=== PATIENT | male | born 1930 | race Hispanic/Latino ===

== ENCOUNTER 2017-07-21 22:36 | Emergency (ER) | payer MEDICARE ==
[2017-07-21 22:37] VITALS: BMI 29.2
[2017-07-21 23:11] VITALS: PULSE 60
--- NOTE | 2017-07-21 23:15 | C.PDOC ---
History Of Present Illness 87 year old male with a rivero catheter in place presents to the ED c/o no urine is draining into leg bag since this afternoon. He now is c/o lower abdomen pain. He denies any fever, nausea, vomit. The catheter was last changed 1 week ago. Time Seen by Provider: 07/21/17 22:56 Chief Complaint (Nursing): Male Genitourinary History Per: Patient History/Exam Limitations: no limitations Onset/Duration Of Symptoms: Hrs Current Symptoms Are (Timing): Still Present Quality Of Discomfort: "Pain" Associated Symptoms: denies: Fever, Nausea, Vomiting Alleviating Factors: None Recent travel outside of the [place]: No Additional History Per: Patient Past Medical History Reviewed: Historical Data, Nursing Documentation, Vital Signs Vital Signs: Last Vital Signs Temp 97.9 F 07/21/17 23:07 Pulse 60 07/21/17 23:07 Resp 20 07/21/17 23:07 BP 178/81 H 07/21/17 23:07 Pulse Ox 98 07/21/17 23:22 - Medical History PMH: Arthritis, Back Problems, Benign Prostatic Hyperplasia, Cardia Arrhythmia, COPD, HTN, Pneumonia Surgical History: Pacemaker (2012), Tonsillectomy - [facility] Procedures CLOSED ENDOSCOPIC BIOPSY OF LARGE INTESTINE (12/16/13) INSERT INDWELLING CATH (04/06/14) OTH TRANSURETHRAL PROSTATECTOMY (12/16/13) REPLACE INDWELLING CATH (05/05/15) Family History: States: Unknown Family Hx - Social History Hx Tobacco Use: No Hx Alcohol Use: Yes Hx Substance Use: No - Immunization History Hx Tetanus Toxoid Vaccination: No Hx Influenza Vaccination: No Hx Pneumococcal Vaccination: No Review Of Systems Constitutional: Negative for: Fever, Chills Cardiovascular: Negative for: Chest Pain, Palpitations Respiratory: Negative for: Cough, Shortness of Breath Gastrointestinal: Positive for: Abdominal Pain. Negative for: Nausea, Vomiting Genitourinary: Positive for: Other (No urine in bag) Neurological: Negative for: Weakness, Numbness Physical Exam - Physical Exam Appears: Non-toxic, No Acute Distress Skin: Normal Color, Warm, Dry Head: Atraumatic, Normacephalic Oral Mucosa: Moist Neck: Normal ROM, Supple Chest: Symmetrical, No Tenderness Cardiovascular: Rhythm Regular, No Murmur Respiratory: Normal Breath Sounds, No Rales, No Rhonchi, No Wheezing Gastrointestinal/Abdominal: Soft, Tenderness (Lower abdomen) Male Genital: Other (Rivero catheter in place) Extremity: Normal ROM, No Pedal Edema, No Calf Tenderness, No Swelling Neurological/Psych: Oriented x3, Normal Speech, Normal Cognition Gait: Steady ED Course And Treatment O2 Sat by Pulse Oximetry: 98 (On RA) Pulse Ox Interpretation: Normal Reevaluation Time: 00:05 Reassessment Condition: Improved (Catheter draining well) Medical Decision Making Medical Decision Making: Rivero catheter was flushed but with a lot of resistance and is unable to be cleared. Catheter was changed in the ED. Disposition Counseled Patient/Family Regarding: Studies Performed, Diagnosis, Need For Followup - Disposition Disposition: HOME/ ROUTINE Disposition Time: 00:05 Condition: IMPROVED Instructions: Urinary Leg Bag (GEN), Rivero Catheter Placement and Care (ED) Forms: [employer] (Mauritanian) - Clinical Impression Clinical Impression: Obstructed Rivero catheter - Scribe Statement The provider has reviewed the documentation as recorded by the Scribe Bear Anderson All medical record entries made by the Scribe were at my direction and personally dictated by me. I have reviewed the chart and agree that the record accurately reflects my personal performance of the history, physical exam, medical decision making, and the department course for this patient. I have also personally directed, reviewed, and agree with the discharge instructions and disposition.
[2017-07-22 00:56] VITALS: BP 164/64; RESP 16; TEMP 98; O2SAT 97
== END 2017-07-22 01:34 | disposition home or self-care (01) ==
LOC: C.ER 22:36
DX: T83.098A Other mechanical complication of other urinary catheter, initial encounter (principal); Y84.8 Other medical procedures as the cause of abnormal reaction of the patient, or of later complication, without mention of misadventure at the time of the procedure; Y92.89 Other specified places as the place of occurrence of the external cause

== ENCOUNTER 2017-08-06 20:43 | Emergency (ER) | payer MEDICARE ==
[2017-08-06 20:44] VITALS: BMI 29.2
[2017-08-06 20:54] VITALS: RESP 18
--- NOTE | 2017-08-06 21:06 | C.PDOC ---
History Of Present Illness 87 year old male presents to the ER with a complaint of suprapubic pressure and distention for the past 4 hours. Patient states he has not past urine in 4 hours and believes his catheter is clogged. Denies nausea, vomiting, fever, or chills. Chief Complaint (Nursing): Male Genitourinary History Per: Patient History/Exam Limitations: no limitations Onset/Duration Of Symptoms: Hrs Current Symptoms Are (Timing): Still Present Quality Of Discomfort: Pressure Associated Symptoms: denies: Fever, Chills, Nausea, Vomiting Alleviating Factors: None Recent travel outside of the [place]: No Past Medical History Reviewed: Historical Data, Nursing Documentation, Vital Signs Vital Signs: Last Vital Signs Temp 97.8 F 08/06/17 22:35 Pulse 62 08/06/17 22:35 Resp 18 08/06/17 22:35 BP 134/80 08/06/17 22:35 Pulse Ox 97 08/06/17 22:35 - Medical History PMH: Arthritis, Back Problems, Benign Prostatic Hyperplasia, Cardia Arrhythmia, COPD, HTN, Pneumonia Surgical History: Pacemaker (2012), Tonsillectomy - [facility] Procedures CLOSED ENDOSCOPIC BIOPSY OF LARGE INTESTINE (12/16/13) INSERT INDWELLING CATH (04/06/14) OTH TRANSURETHRAL PROSTATECTOMY (12/16/13) REPLACE INDWELLING CATH (05/05/15) Family History: States: Unknown Family Hx - Social History Hx Tobacco Use: No Hx Alcohol Use: Yes Hx Substance Use: No - Immunization History Hx Tetanus Toxoid Vaccination: No Hx Influenza Vaccination: No Hx Pneumococcal Vaccination: No Review Of Systems Constitutional: Negative for: Fever, Chills Gastrointestinal: Positive for: Abdominal Pain (Pressure/distention). Negative for: Nausea, Vomiting, Diarrhea Physical Exam - Physical Exam Appears: Non-toxic, No Acute Distress Skin: Normal Color, Warm, Dry Head: Atraumatic, Normacephalic Eye(s): bilateral: Normal Inspection, PERRL, EOMI Oral Mucosa: Moist Neck: Normal, Supple Chest: Symmetrical, No Tenderness Cardiovascular: Rhythm Regular Respiratory: Normal Breath Sounds, No Rales, No Rhonchi, No Wheezing Gastrointestinal/Abdominal: Soft, Tenderness (Mild over suprapubic area), No Guarding, No Rebound Back: No CVA Tenderness Neurological/Psych: Oriented x3, Normal Speech ED Course And Treatment O2 Sat by Pulse Oximetry: 99 (Room air) Pulse Ox Interpretation: Normal Medical Decision Making Medical Decision Making: Will attempt to flush out catheter with sterile saline, if no success then will replace catheter. Catheter could not be successfully flushed, will replace catheter. Disposition - Disposition Referrals: Paris Camacho MD [Primary Care Provider] - Disposition: HOME/ ROUTINE Disposition Time: 21:48 Condition: GOOD Forms: [facility] (Yakut) Print Language: GUATEMALAN - Clinical Impression Clinical Impression: Whiteside catheter problem, Obstructed Whiteside catheter - Scribe Statement The provider has reviewed the documentation as recorded by the Scribe Carlos Frederick All medical record entries made by the Scribe were at my direction and personally dictated by me. I have reviewed the chart and agree that the record accurately reflects my personal performance of the history, physical exam, medical decision making, and the department course for this patient. I have also personally directed, reviewed, and agree with the discharge instructions and disposition.
[2017-08-06 22:47] VITALS: BP 134/80; PULSE 62; TEMP 97.8
[2017-08-07 01:57] VITALS: O2SAT 99
== END 2017-08-06 22:36 | disposition home or self-care (01) ==
LOC: SUPCPDRO 20:43 → C.ER 20:43
DX: T83.098A Other mechanical complication of other urinary catheter, initial encounter (principal); I10 Essential (primary) hypertension; J44.9 Chronic obstructive pulmonary disease, unspecified; N40.0 Benign prostatic hyperplasia without lower urinary tract symptoms

== ENCOUNTER 2017-08-25 18:13 | Emergency (ER) | payer MEDICARE ==
[2017-08-25 18:13] VITALS: BMI 29.2
[2017-08-25 18:40] VITALS: RESP 18; TEMP 97.8
--- NOTE | 2017-08-25 19:41 | C.PDOC ---
History Of Present Illness Patient is an 87 y/o male who presents to the ED for urinary retention. Patient reports feeling as though urinary catheter was clogged after the bag not filling up this morning; catheter last changed on 08/06. Patient notes non- painful suprapubic pressure, but admits pressure to be increasing. Denies fever , nausea/vomiting, constipation, or diarrhea. No other physical complaints at this time. Time Seen by Provider: 08/25/17 19:06 Chief Complaint (Nursing): Male Genitourinary History Per: Patient History/Exam Limitations: no limitations Onset/Duration Of Symptoms: Hrs (this morning) Current Symptoms Are (Timing): Still Present Quality Of Discomfort: Pressure Associated Symptoms: Urinary Symptoms (urinary retention). denies: Fever, Nausea, Vomiting, Diarrhea, Constipation Recent travel outside of the [place]: No Past Medical History Reviewed: Historical Data, Nursing Documentation, Vital Signs Vital Signs: Last Vital Signs Temp 97.8 F 08/25/17 18:34 Pulse 66 08/25/17 20:46 Resp 18 08/25/17 20:46 BP 159/58 H 08/25/17 20:46 Pulse Ox 96 08/25/17 21:31 - Medical History PMH: Arthritis, Back Problems, Benign Prostatic Hyperplasia, Cardia Arrhythmia, COPD, HTN, Pneumonia Surgical History: Pacemaker (2012), Tonsillectomy Other Surgeries: TURP - [facility] Procedures CLOSED ENDOSCOPIC BIOPSY OF LARGE INTESTINE (12/16/13) INSERT INDWELLING CATH (04/06/14) OTH TRANSURETHRAL PROSTATECTOMY (12/16/13) REPLACE INDWELLING CATH (05/05/15) Family History: States: Unknown Family Hx - Social History Hx Tobacco Use: No Hx Alcohol Use: No Hx Substance Use: No - Immunization History Hx Tetanus Toxoid Vaccination: No Hx Influenza Vaccination: No Hx Pneumococcal Vaccination: No Review Of Systems Constitutional: Negative for: Fever Gastrointestinal: Positive for: Abdominal Pain (suprapubic pressure). Negative for: Nausea, Vomiting, Diarrhea, Constipation Genitourinary: Positive for: Other (urinary retention) Physical Exam - Physical Exam Appears: Well, Non-toxic, No Acute Distress, Other (wearing used diaper) Skin: Normal Color, Warm, Dry Head: Atraumatic, Normacephalic Oral Mucosa: Moist Chest: Symmetrical Cardiovascular: Rhythm Regular, No Murmur, Other (pacemaker on left) Respiratory: Normal Breath Sounds, No Rales, No Rhonchi, No Wheezing Gastrointestinal/Abdominal: Soft, Tenderness (mild to lower abdomen), Hernia ( small umbilical hernia, easily reduceable) Male Genital: Other (catheter unchanged at present time) Extremity: No Pedal Edema, No Swelling Neurological/Psych: Oriented x3, Normal Speech, Normal Cognition ED Course And Treatment - Laboratory Results Lab Interpretation: Abnormal (UA 73 WBC's) O2 Sat by Pulse Oximetry: 96 (room air) Pulse Ox Interpretation: Normal Progress Note: Rivero catheter to be inserted for about 200 cc's UA ordered. Cipro PO. Rivero catheter 200 cc's consistent with bladder scan. 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 Santillan *Urologist in about 1 week Your rivero catheter was changed today Urinary retention for 200-300 cc's Prescriptions: Ciprofloxacin [Cipro] 1 tab PO BID #14 tab Instructions: Catheter-associated Urinary Tract Infection (ED) Forms: [facility] (Icelandic) - Clinical Impression Clinical Impression: UTI (urinary tract infection), Obstructed Rivero catheter - Scribe Statement The provider has reviewed the documentation as recorded by the Scribe Liudmila Todd All medical record entries made by the Scribe were at my direction and personally dictated by me. I have reviewed the chart and agree that the record accurately reflects my personal performance of the history, physical exam, medical decision making, and the department course for this patient. I have also personally directed, reviewed, and agree with the discharge instructions and disposition.
[2017-08-25 21:10] LABS: RBC URINE 43 /hpf (0-3); URINE BACTERIA OCC (<OCC); URINE BILIRUBIN NEGATIVE (NEGATIVE); URINE BLOOD 2+ (NEGATIVE); URINE COLOR Yellow (YELLOW); URINE GLUCOSE (UA) NORMAL (Normal); URINE KETONE NEGATIVE (NEGATIVE); URINE LEUKOCYTE ESTERASE 3+ Leu/uL (Negative); URINE PROTEIN 1+ mg/dL (NEGATIVE); URINE TRIPLE PHOSPHATE CRYSTAL RARE /hpf (<OCC); WBC URINE 73 /hpf (0-5)
[2017-08-25 21:31] VITALS: O2SAT 96
[2017-08-25 23:40] VITALS: BP 142/63; PULSE 62
== END 2017-08-25 22:00 | disposition home or self-care (01) ==
LOC: C.ER 18:13
DX: T83.091A Other mechanical complication of indwelling urethral catheter, initial encounter (principal); Y84.6 Urinary catheterization as the cause of abnormal reaction of the patient, or of later complication, without mention of misadventure at the time of the procedure; N39.0 Urinary tract infection, site not specified